=== PATIENT | female | born 2000 | race African-American/Black ===

== ENCOUNTER 2023-12-25 22:19 | Emergency (ER) | payer OTHER ==
[2023-12-25 22:30] VITALS: BP 123/78; PULSE 73; RESP 18; TEMP 98.6; BMI 26.6
[2023-12-25] MEDS ORDERED: ONDANSETRON 4 MG/2 ML VIAL ONE (23:19)
[2023-12-25] MEDS ORDERED: FAMOTIDINE 20 MG/50 ML IVPB 20 MG/50 ML MG IVPB ONE (23:19)
[2023-12-25 23:48] LABS: BASO % 0.5 % (0-2.0); EOS % 0.5 % (0-4.5); HEMATOCRIT 38.6 % (32.4-45.2); HEMOGLOBIN 12.9 GM/dL (10.7-15.3); LYMPH % 24.9 % (8-40); MCH 29.5 pg (25.7-33.7); MCHC 33.3 g/dl (32.0-36.0); MEAN CELL VOLUME 88.4 fl (80-96); MONO % 8.4 % (3.8-10.2); NEUT % 65.7 % (42.8-82.8); PLATELET COUNT 273 10^3/uL (134-434); RBC 4.37 M/mm3 (3.60-5.2); WHITE BLOOD COUNT 11.7 K/mm3 (4.0-10.0)
[2023-12-25] MEDS: ONDANSETRON 4 MG/2 ML VIAL IVPUSH ONE (23:59)
[2023-12-25] MEDS: SODIUM CHLORIDE 1,000 ML IV STA (23:59)
[2023-12-25] MEDS: FAMOTIDINE 20 MG/50 ML IVPB 20 MG/50 ML MG IVPB ONE (23:59)
[2023-12-26 00:02] LABS: POTASSIUM 4.1 mmol/L (3.5-5.1)
[2023-12-26 00:04] LABS: BLOOD UREA NITROGEN 5.9 mg/dL (7-18)
[2023-12-26 00:06] LABS: ALBUMIN 4.4 g/dl (3.4-5.0)
[2023-12-26 00:09] LABS: CREATININE 0.7 mg/dL (0.55-1.3); TOT PROT 7.9 g/dl (6.4-8.2)
[2023-12-26] MEDS: SODIUM CHLORIDE 1,000 ML IV STA (00:50)
[2023-12-26 00:53] LABS: PH,URINE 5.5 (5.0-8.0); URINE BILIRUBIN NEGATIVE (NEGATIVE); URINE COLOR YELLOW; URINE GLUCOSE (UA) NEGATIVE (NEGATIVE); URINE KETONE 4+ (NEGATIVE); URINE LEUK ESTERASE NEGATIVE (NEGATIVE); URINE NITRITE NEGATIVE (NEGATIVE); URINE PROTEIN NEGATIVE (NEGATIVE); URINE UROBILINOGEN 0.2 mg/dL (0.2-1.0)
[2023-12-27 09:52] LABS: URINE APPEARANCE CLEAR
== END 2023-12-26 02:27 | disposition home or self-care (01) ==
LOC: JER 22:19
PROC: 3E033GC Introduction of Other Therapeutic Substance into Peripheral Vein, Percutaneous Approach (ICD-10-PCS; principal; 2023-12-25)
PROC: 3E033GC Introduction of Other Therapeutic Substance into Peripheral Vein, Percutaneous Approach (ICD-10-PCS; 2023-12-25)
PROC: 3E0337Z Introduction of Electrolytic and Water Balance Substance into Peripheral Vein, Percutaneous Approach (ICD-10-PCS; 2023-12-26)
DX: O21.0 Mild hyperemesis gravidarum (principal); O26.899 Other specified pregnancy related conditions, unspecified trimester; R10.13 Epigastric pain; Z3A.00 Weeks of gestation of pregnancy not specified
CPT/HCPCS: 36415; 80053; 81003; 83690; 84702; 84703; 85025; 99284-25